=== PATIENT | male | born 1975 | race Native Hawaiian/Other Pacific Islander ===

== ENCOUNTER 2016-06-17 15:54 | Outpatient (CLI) | payer BC ==
[2016-06-17 16:22] LABS: PLATELET COUNT 202 K/uL (142-355)
[2016-06-17 16:31] LABS: POTASSIUM 4.3 mmol/L (3.6-5.2); SODIUM 134 mmol/L (136-145)
== END 2016-06-17 23:06 | disposition home or self-care (01) ==
LOC: LAB 15:54
PROVIDERS: Student in an Organized Health Care Education/Training Program
DX: K85.90 Acute pancreatitis without necrosis or infection, unspecified (principal); R74.0 Nonspecific elevation of levels of transaminase and lactic acid dehydrogenase [LDH]
CPT/HCPCS: 80053; 83735; 84100; 84478; 85027

== ENCOUNTER 2016-06-24 15:31 | Outpatient (CLI) | payer BC ==
[2016-06-24 15:46] LABS: PLATELET COUNT 160 K/uL (142-355)
[2016-06-24 16:08] LABS: POTASSIUM 3.9 mmol/L (3.6-5.2); SODIUM 139 mmol/L (136-145)
== END 2016-06-24 20:19 | disposition home or self-care (01) ==
LOC: LAB 15:31
PROVIDERS: Student in an Organized Health Care Education/Training Program
DX: Z79.899 Other long term (current) drug therapy (principal); Z51.81 Encounter for therapeutic drug level monitoring; K85.90 Acute pancreatitis without necrosis or infection, unspecified; R74.0 Nonspecific elevation of levels of transaminase and lactic acid dehydrogenase [LDH]
CPT/HCPCS: 80053; 83735; 84100; 84478; 85027

== ENCOUNTER 2016-07-01 15:05 | Outpatient (CLI) | payer OTHER ==
[2016-07-01 16:23] LABS: PLATELET COUNT 224 K/uL (142-355)
[2016-07-01 16:28] LABS: SODIUM 137 mmol/L (136-145)
== END 2016-07-02 02:03 | disposition home or self-care (01) ==
LOC: LAB 15:05
PROVIDERS: Student in an Organized Health Care Education/Training Program
DX: K29.80 Duodenitis without bleeding (principal); K86.1 Other chronic pancreatitis; E46 Unspecified protein-calorie malnutrition
CPT/HCPCS: 80053; 83735; 84100; 84478; 85027

== ENCOUNTER 2016-07-08 12:28 | Outpatient (CLI) | payer OTHER ==
[2016-07-08 14:06] LABS: PLATELET COUNT 195 K/uL (142-355)
[2016-07-08 14:12] LABS: SODIUM 137 mmol/L (136-145)
== END 2016-07-08 19:36 | disposition home or self-care (01) ==
LOC: LAB 12:28
PROVIDERS: Student in an Organized Health Care Education/Training Program
DX: K29.80 Duodenitis without bleeding (principal); K86.1 Other chronic pancreatitis; E46 Unspecified protein-calorie malnutrition; Z79.899 Other long term (current) drug therapy; Z51.81 Encounter for therapeutic drug level monitoring
CPT/HCPCS: 80053; 82150; 83690; 83735; 84100; 84478; 85027

== ENCOUNTER 2016-07-15 13:13 | Outpatient (CLI) | payer BC ==
[2016-07-15 13:35] LABS: PLATELET COUNT 223 K/uL (142-355)
[2016-07-15 13:59] LABS: POTASSIUM 4.4 mmol/L (3.6-5.2); SODIUM 136 mmol/L (136-145)
== END 2016-07-15 19:54 | disposition home or self-care (01) ==
LOC: LAB 13:13
PROVIDERS: Student in an Organized Health Care Education/Training Program
DX: K29.80 Duodenitis without bleeding (principal); K86.1 Other chronic pancreatitis; Z79.899 Other long term (current) drug therapy; Z51.81 Encounter for therapeutic drug level monitoring; E46 Unspecified protein-calorie malnutrition
CPT/HCPCS: 80053; 82150; 83690; 83735; 84100; 84478; 85027

== ENCOUNTER 2016-07-15 18:07 | Emergency (ER) | payer BC, OTHER ==
[~2016-07-15] VITALS: Ht 188 cm; Wt 108.9 kg
[2016-07-15 20:39] LABS: PLATELET COUNT 227 K/uL (142-355)
[2016-07-15 20:46] LABS: POTASSIUM 3.9 mmol/L (3.6-5.2); SODIUM 133 mmol/L (136-145)
[2016-07-15 23:53] VITALS: BP 135/90; TEMP 98.4
== END 2016-07-15 23:58 | disposition home or self-care (01) ==
LOC: ED 18:07
PROVIDERS: Specialist
DX: K86.1 Other chronic pancreatitis (principal); K57.90 Diverticulosis of intestine, part unspecified, without perforation or abscess without bleeding; G89.4 Chronic pain syndrome
CPT/HCPCS: 36591; 80053; 82150; 83690; 83735; 84100; 85027; 96374; 99284; J2405; J2550; Q9963

== ENCOUNTER 2016-07-22 15:26 | Outpatient (CLI) | payer BC, OTHER ==
[2016-07-22 15:46] LABS: PLATELET COUNT 161 K/uL (142-355)
[2016-07-22 16:31] LABS: SODIUM 139 mmol/L (136-145)
== END 2016-07-22 19:25 | disposition home or self-care (01) ==
LOC: LAB 15:26
PROVIDERS: Student in an Organized Health Care Education/Training Program
DX: K29.80 Duodenitis without bleeding (principal); K86.1 Other chronic pancreatitis; Z79.899 Other long term (current) drug therapy; Z51.81 Encounter for therapeutic drug level monitoring
CPT/HCPCS: 80053; 82150; 83690; 83735; 84100; 84478; 85027

== ENCOUNTER 2016-07-29 15:13 | Outpatient (CLI) | payer BC, OTHER ==
[2016-07-29 16:11] LABS: PLATELET COUNT 179 K/uL (142-355)
[2016-07-29 16:13] LABS: POTASSIUM 4.2 mmol/L (3.6-5.2); SODIUM 136 mmol/L (136-145)
== END 2016-07-29 19:31 | disposition home or self-care (01) ==
LOC: LAB 15:13
PROVIDERS: Student in an Organized Health Care Education/Training Program
DX: K29.80 Duodenitis without bleeding (principal); K86.1 Other chronic pancreatitis; E46 Unspecified protein-calorie malnutrition; Z51.81 Encounter for therapeutic drug level monitoring
CPT/HCPCS: 80053; 82150; 83690; 83735; 84100; 84478; 85027

== ENCOUNTER 2016-08-06 14:26 | Outpatient (CLI) | payer BC, OTHER ==
[2016-08-06 15:07] LABS: PLATELET COUNT 192 K/uL (142-355)
[2016-08-06 15:34] LABS: POTASSIUM 4.4 mmol/L (3.6-5.2); SODIUM 134 mmol/L (136-145)
== END 2016-08-06 15:26 | disposition home or self-care (01) ==
LOC: LAB 14:26
PROVIDERS: Student in an Organized Health Care Education/Training Program
DX: K29.80 Duodenitis without bleeding (principal); K86.1 Other chronic pancreatitis; E46 Unspecified protein-calorie malnutrition; Z51.81 Encounter for therapeutic drug level monitoring
CPT/HCPCS: 80053; 82150; 83690; 83735; 84100; 84478; 85027

== ENCOUNTER 2016-08-12 15:37 | Outpatient (CLI) | payer BC, OTHER ==
[2016-08-12 16:04] LABS: PLATELET COUNT 174 K/uL (142-355)
[2016-08-12 16:16] LABS: POTASSIUM 4.1 mmol/L (3.6-5.2); SODIUM 140 mmol/L (136-145)
== END 2016-08-12 19:21 | disposition home or self-care (01) ==
LOC: LAB 15:37
PROVIDERS: Student in an Organized Health Care Education/Training Program
DX: K29.80 Duodenitis without bleeding (principal); K86.1 Other chronic pancreatitis; E46 Unspecified protein-calorie malnutrition; Z51.81 Encounter for therapeutic drug level monitoring
CPT/HCPCS: 80053; 82150; 83690; 83735; 84100; 84478; 85027

== ENCOUNTER 2016-08-19 13:01 | Outpatient (CLI) | payer BC, OTHER ==
[2016-08-19 13:29] LABS: PLATELET COUNT 151 K/uL (142-355)
[2016-08-19 14:02] LABS: SODIUM 138 mmol/L (136-145)
== END 2016-08-19 19:25 | disposition home or self-care (01) ==
LOC: LAB 13:01
PROVIDERS: Student in an Organized Health Care Education/Training Program
DX: K29.80 Duodenitis without bleeding (principal); K86.1 Other chronic pancreatitis; E46 Unspecified protein-calorie malnutrition; Z51.81 Encounter for therapeutic drug level monitoring
CPT/HCPCS: 80053; 82150; 83690; 83735; 84100; 84478; 85027

== ENCOUNTER 2016-08-26 15:22 | Outpatient (CLI) | payer BC, OTHER ==
[2016-08-26 16:06] LABS: PLATELET COUNT 158 K/uL (142-355)
[2016-08-26 16:10] LABS: POTASSIUM 4.1 mmol/L (3.6-5.2); SODIUM 137 mmol/L (136-145)
== END 2016-08-26 19:33 | disposition home or self-care (01) ==
LOC: LAB 15:22
PROVIDERS: Student in an Organized Health Care Education/Training Program
DX: K29.80 Duodenitis without bleeding (principal); K86.1 Other chronic pancreatitis; Z79.899 Other long term (current) drug therapy; Z51.81 Encounter for therapeutic drug level monitoring
CPT/HCPCS: 80053; 82150; 83690; 83735; 84100; 84478; 85027

== ENCOUNTER 2016-09-02 15:24 | Outpatient (CLI) | payer BC, OTHER ==
[2016-09-02 15:37] LABS: PLATELET COUNT 196 K/uL (142-355)
[2016-09-02 16:17] LABS: POTASSIUM 3.5 mmol/L (3.6-5.2); SODIUM 139 mmol/L (136-145)
== END 2016-09-02 20:03 | disposition home or self-care (01) ==
LOC: LAB 15:24
PROVIDERS: Student in an Organized Health Care Education/Training Program
DX: K29.80 Duodenitis without bleeding (principal); K86.1 Other chronic pancreatitis; E46 Unspecified protein-calorie malnutrition; Z51.81 Encounter for therapeutic drug level monitoring
CPT/HCPCS: 80053; 82150; 83690; 83735; 84100; 84478; 85027

== ENCOUNTER 2016-09-09 12:30 | Outpatient (CLI) | payer BC, OTHER ==
[2016-09-09 13:01] LABS: PLATELET COUNT 177 K/uL (142-355)
[2016-09-09 13:05] LABS: POTASSIUM 4.1 mmol/L (3.6-5.2); SODIUM 137 mmol/L (136-145)
== END 2016-09-09 19:23 | disposition home or self-care (01) ==
LOC: LAB 12:30
PROVIDERS: Student in an Organized Health Care Education/Training Program
DX: K29.80 Duodenitis without bleeding (principal); K86.1 Other chronic pancreatitis; Z79.899 Other long term (current) drug therapy; Z51.81 Encounter for therapeutic drug level monitoring
CPT/HCPCS: 80053; 82150; 83690; 83735; 84100; 84478; 85027

== ENCOUNTER 2016-09-18 13:00 | Outpatient (CLI) | payer BC, OTHER ==
[2016-09-18 13:16] LABS: PLATELET COUNT 146 K/uL (142-355)
[2016-09-18 13:44] LABS: POTASSIUM 3.8 mmol/L (3.6-5.2); SODIUM 140 mmol/L (136-145)
== END 2016-09-18 19:32 | disposition home or self-care (01) ==
LOC: LAB 13:00
PROVIDERS: Student in an Organized Health Care Education/Training Program
DX: K29.80 Duodenitis without bleeding (principal); K86.1 Other chronic pancreatitis; E46 Unspecified protein-calorie malnutrition; Z51.81 Encounter for therapeutic drug level monitoring
CPT/HCPCS: 80053; 82150; 83690; 83735; 84100; 84478; 85027

== ENCOUNTER 2016-10-29 15:04 | Outpatient (CLI) | payer BC, OTHER ==
[2016-10-29 15:27] LABS: PLATELET COUNT 137 K/uL (142-355)
[2016-10-29 15:38] LABS: POTASSIUM 3.1 mmol/L (3.6-5.2); SODIUM 139 mmol/L (136-145)
== END 2016-10-29 16:05 | disposition home or self-care (01) ==
LOC: LAB 15:04
PROVIDERS: Internal Medicine
DX: K29.80 Duodenitis without bleeding (principal); K86.1 Other chronic pancreatitis; E46 Unspecified protein-calorie malnutrition
CPT/HCPCS: 80053; 82150; 83690; 84100; 85027

== ENCOUNTER 2016-11-04 14:20 | Outpatient (CLI) | payer BC, OTHER ==
[2016-11-04 14:59] LABS: POTASSIUM 3.5 mmol/L (3.6-5.2); SODIUM 143 mmol/L (136-145)
[2016-11-04 15:12] LABS: PLATELET COUNT 144 K/uL (142-355)
== END 2016-11-04 15:20 | disposition home or self-care (01) ==
LOC: LAB 14:20
PROVIDERS: Internal Medicine
DX: K29.80 Duodenitis without bleeding (principal); K86.1 Other chronic pancreatitis
CPT/HCPCS: 80053; 82150; 83690; 85027

== ENCOUNTER 2016-11-25 12:28 | Outpatient (CLI) | payer BC, OTHER ==
[2016-11-25 12:47] LABS: PLATELET COUNT 152 K/uL (142-355)
[2016-11-25 13:01] LABS: POTASSIUM 2.7 mmol/L (3.6-5.2); SODIUM 141 mmol/L (136-145)
== END 2016-11-25 19:28 | disposition home or self-care (01) ==
LOC: LAB 12:28
PROVIDERS: Internal Medicine
DX: K29.80 Duodenitis without bleeding (principal); K86.1 Other chronic pancreatitis; E46 Unspecified protein-calorie malnutrition
CPT/HCPCS: 80053; 82150; 83690; 83735; 85027

== ENCOUNTER 2016-11-27 15:51 | Outpatient (CLI) | payer BC, OTHER ==
[2016-11-27 16:29] LABS: PLATELET COUNT 329 K/uL (142-355)
[2016-11-27 16:34] LABS: POTASSIUM 2.8 mmol/L (3.6-5.2); SODIUM 139 mmol/L (136-145)
== END 2016-11-27 17:00 | disposition home or self-care (01) ==
LOC: LAB 15:51
PROVIDERS: Internal Medicine
DX: K29.80 Duodenitis without bleeding (principal); K86.1 Other chronic pancreatitis
CPT/HCPCS: 80053; 82150; 83690; 83735; 85027

== ENCOUNTER 2016-12-04 15:32 | Outpatient (CLI) | payer BC, OTHER ==
[2016-12-04 16:13] LABS: PLATELET COUNT 179 K/uL (142-355)
[2016-12-04 16:45] LABS: POTASSIUM 3.3 mmol/L (3.6-5.2); SODIUM 143 mmol/L (136-145)
== END 2016-12-04 19:36 | disposition home or self-care (01) ==
LOC: LAB 15:32
PROVIDERS: Internal Medicine
DX: K29.80 Duodenitis without bleeding (principal); K86.1 Other chronic pancreatitis; E46 Unspecified protein-calorie malnutrition
CPT/HCPCS: 80053; 82150; 83690; 83735; 85027

== ENCOUNTER 2016-12-09 12:24 | Outpatient (CLI) | payer BC, OTHER ==
[2016-12-09 13:10] LABS: PLATELET COUNT 134 K/uL (142-355)
[2016-12-09 13:18] LABS: POTASSIUM 3.7 mmol/L (3.6-5.2); SODIUM 141 mmol/L (136-145)
== END 2016-12-09 19:24 | disposition home or self-care (01) ==
LOC: LAB 12:24
PROVIDERS: Internal Medicine
DX: K29.80 Duodenitis without bleeding (principal); K86.1 Other chronic pancreatitis; E46 Unspecified protein-calorie malnutrition
CPT/HCPCS: 80053; 82150; 83690; 83735; 85027

== ENCOUNTER 2017-01-16 13:13 | Outpatient (CLI) | payer BC, OTHER ==
[2017-01-16 13:26] LABS: PLATELET COUNT 150 K/uL (142-355)
[2017-01-16 13:34] LABS: POTASSIUM 3.3 mmol/L (3.6-5.2); SODIUM 143 mmol/L (136-145)
== END 2017-01-16 14:15 | disposition home or self-care (01) ==
LOC: LAB 13:13
PROVIDERS: Internal Medicine
DX: K29.80 Duodenitis without bleeding (principal); E46 Unspecified protein-calorie malnutrition; K86.1 Other chronic pancreatitis
CPT/HCPCS: 80053; 82150; 83690; 83735; 85027

== ENCOUNTER 2017-01-29 15:06 | Outpatient (CLI) | payer BC, OTHER ==
[2017-01-29 16:08] LABS: PLATELET COUNT 185 K/uL (142-355)
[2017-01-29 16:47] LABS: POTASSIUM 3.5 mmol/L (3.6-5.2); SODIUM 139 mmol/L (136-145)
== END 2017-01-29 19:10 | disposition home or self-care (01) ==
LOC: LAB 15:06
PROVIDERS: Surgery
DX: K90.89 Other intestinal malabsorption (principal)
CPT/HCPCS: 80053; 82525; 82607; 82652; 82728; 83540; 83970; 84425; 85027

== ENCOUNTER 2017-02-03 10:15 | Outpatient (CLI) | payer BC, OTHER | END 2017-02-03 11:15 | disposition home or self-care (01) | LOC: LAB 10:15 | DX: K90.89 Other intestinal malabsorption (principal) | CPT/HCPCS: 82747; 84425 ==

== ENCOUNTER 2017-02-19 15:25 | Outpatient (CLI) | payer BC, OTHER ==
[2017-02-19 16:22] LABS: PLATELET COUNT 164 K/uL (142-355)
[2017-02-19 16:24] LABS: SODIUM 137 mmol/L (136-145)
== END 2017-02-19 19:52 | disposition home or self-care (01) ==
LOC: LAB 15:25
PROVIDERS: Surgery
DX: K29.80 Duodenitis without bleeding (principal); E46 Unspecified protein-calorie malnutrition; K86.1 Other chronic pancreatitis; E55.9 Vitamin D deficiency, unspecified
CPT/HCPCS: 80053; 82306; 82525; 82607; 82728; 82747; 83540; 83735; 83970; 84425; 85027

== ENCOUNTER 2017-05-27 15:01 | Outpatient (CLI) | payer BC, OTHER ==
[2017-05-27 15:53] LABS: PLATELET COUNT 167 K/uL (142-355)
[2017-05-27 16:21] LABS: POTASSIUM 2.8 mmol/L (3.6-5.2)
== END 2017-05-27 19:08 | disposition home or self-care (01) ==
LOC: LAB 15:01
PROVIDERS: Internal Medicine
DX: F32.89 Other specified depressive episodes (principal); K76.0 Fatty (change of) liver, not elsewhere classified
CPT/HCPCS: 80053; 82150; 83690; 85027

== ENCOUNTER 2017-06-06 16:16 | Outpatient (CLI) | payer BC, OTHER ==
[2017-06-06 17:54] LABS: POTASSIUM 2.9 mmol/L (3.6-5.2)
[2017-06-06 17:56] LABS: PLATELET COUNT 193 K/uL (142-355)
== END 2017-06-06 19:25 | disposition home or self-care (01) ==
LOC: LAB 16:16
PROVIDERS: Internal Medicine
DX: R62.7 Adult failure to thrive (principal); E78.6 Lipoprotein deficiency
CPT/HCPCS: 80053; 80061; 83735; 84100; 85027

== ENCOUNTER 2017-06-11 14:39 | Outpatient (CLI) | payer BC, OTHER ==
[2017-06-11 15:17] LABS: PLATELET COUNT 209 K/uL (142-355)
== END 2017-06-11 19:24 | disposition home or self-care (01) ==
LOC: LAB 14:39
PROVIDERS: Internal Medicine
DX: K29.80 Duodenitis without bleeding (principal); E46 Unspecified protein-calorie malnutrition; K86.1 Other chronic pancreatitis
CPT/HCPCS: 80053; 83735; 84100; 84478; 85027

== ENCOUNTER 2017-06-13 16:02 | Outpatient (CLI) | payer BC, OTHER ==
[2017-06-13 16:14] LABS: POTASSIUM 4.2 mmol/L (3.6-5.2)
== END 2017-06-13 21:09 | disposition home or self-care (01) ==
LOC: LAB 16:02
PROVIDERS: Internal Medicine
DX: K85.80 Other acute pancreatitis without necrosis or infection (principal); R74.0 Nonspecific elevation of levels of transaminase and lactic acid dehydrogenase [LDH]; E87.6 Hypokalemia
CPT/HCPCS: 36415; 80053; 83735; 84100

== ENCOUNTER 2017-06-16 15:09 | Outpatient (CLI) | payer BC, OTHER ==
[2017-06-16 15:51] LABS: PLATELET COUNT 155 K/uL (142-355)
[2017-06-16 16:02] LABS: POTASSIUM 3.8 mmol/L (3.6-5.2)
== END 2017-06-16 19:22 | disposition home or self-care (01) ==
LOC: LAB 15:09
PROVIDERS: Internal Medicine
DX: K29.80 Duodenitis without bleeding (principal); E46 Unspecified protein-calorie malnutrition
CPT/HCPCS: 80053; 83735; 84100; 84478; 85027

== ENCOUNTER 2017-06-24 11:47 | Outpatient (CLI) | payer BC, OTHER | END 2017-06-24 19:49 | disposition home or self-care (01) | LOC: LAB 11:47 | DX: E46 Unspecified protein-calorie malnutrition (principal) | CPT/HCPCS: 82150; 83690 ==

== ENCOUNTER 2017-06-30 18:08 | Outpatient (CLI) | payer BC, OTHER ==
[2017-06-30 18:26] LABS: PLATELET COUNT 190 K/uL (142-355)
[2017-06-30 18:49] LABS: POTASSIUM 3.9 mmol/L (3.6-5.2)
== END 2017-06-30 20:12 | disposition home or self-care (01) ==
LOC: LAB 18:08
PROVIDERS: Internal Medicine
DX: K29.80 Duodenitis without bleeding (principal); E46 Unspecified protein-calorie malnutrition; E87.6 Hypokalemia
CPT/HCPCS: 80053; 83735; 84100; 84478; 85027

== ENCOUNTER 2017-07-08 14:50 | Outpatient (CLI) | payer BC, OTHER ==
[2017-07-08 15:50] LABS: POTASSIUM 4.1 mmol/L (3.6-5.2)
[2017-07-08 15:51] LABS: PLATELET COUNT 186 K/uL (142-355)
== END 2017-07-08 18:20 | disposition home or self-care (01) ==
LOC: LAB 14:50
PROVIDERS: Internal Medicine
DX: K29.80 Duodenitis without bleeding (principal); E87.6 Hypokalemia; K86.1 Other chronic pancreatitis
CPT/HCPCS: 80053; 83735; 84100; 84478; 85027

== ENCOUNTER 2017-07-15 13:27 | Outpatient (CLI) | payer BC, OTHER ==
[2017-07-15 14:04] LABS: PLATELET COUNT 156 K/uL (142-355)
[2017-07-15 14:13] LABS: POTASSIUM 3.9 mmol/L (3.6-5.2)
== END 2017-07-15 20:03 | disposition home or self-care (01) ==
LOC: LAB 13:27
PROVIDERS: Internal Medicine
DX: K86.89 Other specified diseases of pancreas (principal); R74.0 Nonspecific elevation of levels of transaminase and lactic acid dehydrogenase [LDH]; R62.7 Adult failure to thrive; K31.84 Gastroparesis
CPT/HCPCS: 80053; 83735; 84100; 84478; 85027

== ENCOUNTER 2017-07-29 15:05 | Outpatient (CLI) | payer BC, OTHER ==
[2017-07-29 15:23] LABS: PLATELET COUNT 224 K/uL (142-355)
[2017-07-29 16:19] LABS: POTASSIUM 3.9 mmol/L (3.6-5.2)
== END 2017-07-29 22:57 | disposition home or self-care (01) ==
LOC: LAB 15:05
PROVIDERS: Internal Medicine
DX: K85.80 Other acute pancreatitis without necrosis or infection (principal); R74.0 Nonspecific elevation of levels of transaminase and lactic acid dehydrogenase [LDH]; R62.7 Adult failure to thrive; K31.84 Gastroparesis
CPT/HCPCS: 80053; 83735; 84100; 84478; 85027

== ENCOUNTER 2017-08-05 13:14 | Outpatient (CLI) | payer BC, OTHER ==
[2017-08-05 13:57] LABS: PLATELET COUNT 128 K/uL (142-355)
[2017-08-05 14:07] LABS: POTASSIUM 3.5 mmol/L (3.6-5.2)
== END 2017-08-05 22:56 | disposition home or self-care (01) ==
LOC: LAB 13:14
PROVIDERS: Internal Medicine
DX: K86.89 Other specified diseases of pancreas (principal); R74.0 Nonspecific elevation of levels of transaminase and lactic acid dehydrogenase [LDH]; R62.7 Adult failure to thrive; K31.84 Gastroparesis
CPT/HCPCS: 80053; 83735; 84100; 84478; 85027

== ENCOUNTER 2017-09-02 12:48 | Outpatient (CLI) | payer BC, OTHER ==
[2017-09-02 13:31] LABS: PLATELET COUNT 146 K/uL (142-355)
== END 2017-09-02 19:36 | disposition home or self-care (01) ==
LOC: LAB 12:48
PROVIDERS: Internal Medicine
DX: K29.80 Duodenitis without bleeding (principal); E87.6 Hypokalemia; K86.1 Other chronic pancreatitis
CPT/HCPCS: 80053; 82150; 83690; 83735; 84100; 84478; 85027

== ENCOUNTER 2017-09-30 14:21 | Outpatient (CLI) | payer BC, OTHER ==
[2017-09-30 14:56] LABS: PLATELET COUNT 214 K/uL (142-355)
[2017-09-30 15:16] LABS: POTASSIUM 3.1 mmol/L (3.6-5.2)
== END 2017-09-30 19:53 | disposition home or self-care (01) ==
LOC: LAB 14:21
PROVIDERS: Internal Medicine
DX: K85.80 Other acute pancreatitis without necrosis or infection (principal); R74.0 Nonspecific elevation of levels of transaminase and lactic acid dehydrogenase [LDH]; R62.7 Adult failure to thrive; K31.84 Gastroparesis
CPT/HCPCS: 80053; 83735; 84100; 84478; 85027

== ENCOUNTER 2017-10-07 14:42 | Outpatient (CLI) | payer BC, OTHER ==
[2017-10-07 15:01] LABS: PLATELET COUNT 140 K/uL (142-355)
[2017-10-07 15:40] LABS: POTASSIUM 3.2 mmol/L (3.6-5.2)
== END 2017-10-07 22:26 | disposition home or self-care (01) ==
LOC: LAB 14:42
PROVIDERS: Internal Medicine
DX: K85.80 Other acute pancreatitis without necrosis or infection (principal); R74.0 Nonspecific elevation of levels of transaminase and lactic acid dehydrogenase [LDH]; R62.7 Adult failure to thrive
CPT/HCPCS: 80053; 83735; 84100; 84478; 85027

== ENCOUNTER 2017-10-17 12:22 | Outpatient (CLI) | payer BC, OTHER ==
[2017-10-17 13:06] LABS: PLATELET COUNT 138 K/uL (142-355)
[2017-10-17 13:33] LABS: POTASSIUM 3.2 mmol/L (3.6-5.2)
== END 2017-10-17 23:16 | disposition home or self-care (01) ==
LOC: LAB 12:22
PROVIDERS: Internal Medicine
DX: K85.80 Other acute pancreatitis without necrosis or infection (principal); R74.0 Nonspecific elevation of levels of transaminase and lactic acid dehydrogenase [LDH]; R62.7 Adult failure to thrive; K31.84 Gastroparesis
CPT/HCPCS: 80053; 83735; 84100; 84478; 85027

== ENCOUNTER 2017-10-29 09:52 | Outpatient (CLI) | payer BC, OTHER ==
[2017-10-29 10:23] LABS: POTASSIUM 3.8 mmol/L (3.6-5.2)
[2017-10-29 10:29] LABS: PLATELET COUNT 150 K/uL (142-355)
== END 2017-10-29 23:55 | disposition home or self-care (01) ==
LOC: LAB 09:52
PROVIDERS: Internal Medicine
DX: K29.80 Duodenitis without bleeding (principal); E46 Unspecified protein-calorie malnutrition; T80.211D Bloodstream infection due to central venous catheter, subsequent encounter
CPT/HCPCS: 80053; 80202; 83735; 84100; 84478; 85027

== ENCOUNTER 2017-11-04 14:14 | Outpatient (CLI) | payer BC, OTHER ==
[2017-11-04 14:43] LABS: PLATELET COUNT 115 K/uL (142-355)
[2017-11-04 15:21] LABS: POTASSIUM 3.2 mmol/L (3.6-5.2)
== END 2017-11-04 23:17 | disposition home or self-care (01) ==
LOC: LAB 14:14
PROVIDERS: Internal Medicine
DX: K85.80 Other acute pancreatitis without necrosis or infection (principal); R74.0 Nonspecific elevation of levels of transaminase and lactic acid dehydrogenase [LDH]; R62.7 Adult failure to thrive; K31.84 Gastroparesis
CPT/HCPCS: 80053; 83735; 84100; 84478; 85027

== ENCOUNTER 2017-11-11 12:31 | Outpatient (CLI) | payer BC, OTHER ==
[2017-11-11 12:52] LABS: PLATELET COUNT 108 K/uL (142-355)
[2017-11-11 13:10] LABS: POTASSIUM 3.3 mmol/L (3.6-5.2)
== END 2017-11-11 19:09 | disposition home or self-care (01) ==
LOC: LAB 12:31
PROVIDERS: Internal Medicine
DX: K85.80 Other acute pancreatitis without necrosis or infection (principal); R74.0 Nonspecific elevation of levels of transaminase and lactic acid dehydrogenase [LDH]; R62.7 Adult failure to thrive
CPT/HCPCS: 80053; 83735; 84100; 84478; 85027

== ENCOUNTER 2017-11-18 14:42 | Outpatient (CLI) | payer BC, OTHER ==
[2017-11-18 15:10] LABS: PLATELET COUNT 91 K/uL (142-355)
[2017-11-18 15:37] LABS: POTASSIUM 3.7 mmol/L (3.6-5.2)
== END 2017-11-18 23:51 | disposition home or self-care (01) ==
LOC: LAB 14:42
PROVIDERS: Internal Medicine
DX: K85.90 Acute pancreatitis without necrosis or infection, unspecified (principal); R74.0 Nonspecific elevation of levels of transaminase and lactic acid dehydrogenase [LDH]; R62.7 Adult failure to thrive; K31.84 Gastroparesis
CPT/HCPCS: 80053; 83735; 84100; 84478; 85027

== ENCOUNTER 2017-12-01 14:48 | Outpatient (CLI) | payer BC, OTHER ==
[2017-12-01 15:19] LABS: PLATELET COUNT 148 K/uL (142-355)
[2017-12-01 15:49] LABS: POTASSIUM 3.9 mmol/L (3.6-5.2)
== END 2017-12-01 22:03 | disposition home or self-care (01) ==
LOC: LAB 14:48
PROVIDERS: Internal Medicine
DX: K85.80 Other acute pancreatitis without necrosis or infection (principal); R74.0 Nonspecific elevation of levels of transaminase and lactic acid dehydrogenase [LDH]; R62.7 Adult failure to thrive; K31.84 Gastroparesis
CPT/HCPCS: 80053; 83735; 84100; 84478; 85027

== ENCOUNTER 2017-12-09 13:02 | Outpatient (CLI) | payer BC ==
[2017-12-09 13:42] LABS: PLATELET COUNT 161 K/uL (142-355)
[2017-12-09 13:55] LABS: POTASSIUM 3.3 mmol/L (3.6-5.2)
== END 2017-12-09 19:55 | disposition home or self-care (01) ==
LOC: LAB 13:02
PROVIDERS: Internal Medicine
DX: K29.80 Duodenitis without bleeding (principal); K95.89 Other complications of other bariatric procedure; E46 Unspecified protein-calorie malnutrition; Z79.899 Other long term (current) drug therapy
CPT/HCPCS: 80053; 83735; 84100; 84478; 85027

== ENCOUNTER 2017-12-16 13:50 | Outpatient (CLI) | payer BC ==
[2017-12-16 14:19] LABS: PLATELET COUNT 127 K/uL (142-355)
[2017-12-16 14:34] LABS: POTASSIUM 3.7 mmol/L (3.6-5.2)
== END 2017-12-16 20:02 | disposition home or self-care (01) ==
LOC: LAB 13:50
PROVIDERS: Internal Medicine
DX: K85.80 Other acute pancreatitis without necrosis or infection (principal); R74.0 Nonspecific elevation of levels of transaminase and lactic acid dehydrogenase [LDH]
CPT/HCPCS: 80053; 83735; 84100; 84478; 85027

== ENCOUNTER 2017-12-23 14:52 | Outpatient (CLI) | payer BC ==
[2017-12-23 15:17] LABS: PLATELET COUNT 95 K/uL (142-355)
[2017-12-23 15:27] LABS: POTASSIUM 3.3 mmol/L (3.6-5.2)
== END 2017-12-23 22:09 | disposition home or self-care (01) ==
LOC: LAB 14:52
PROVIDERS: Internal Medicine
DX: K31.84 Gastroparesis (principal); Z79.899 Other long term (current) drug therapy; R62.7 Adult failure to thrive
CPT/HCPCS: 80053; 83735; 84100; 84478; 85027

== ENCOUNTER 2018-01-06 11:34 | Outpatient (CLI) | payer BC, OTHER ==
[2018-01-06 12:30] LABS: PLATELET COUNT 144 K/uL (142-355)
[2018-01-06 13:00] LABS: POTASSIUM 4.4 mmol/L (3.6-5.2)
== END 2018-01-06 23:31 | disposition home or self-care (01) ==
LOC: LAB 11:34
PROVIDERS: Internal Medicine
DX: D46.9 Myelodysplastic syndrome, unspecified (principal); R78.81 Bacteremia; R74.0 Nonspecific elevation of levels of transaminase and lactic acid dehydrogenase [LDH]
CPT/HCPCS: 80053; 80202; 83735; 84100; 84478; 85027; 85651; 86140

== ENCOUNTER 2018-01-13 11:45 | Outpatient (CLI) | payer BC, OTHER ==
[2018-01-13 13:18] LABS: PLATELET COUNT 123 K/uL (142-355)
== END 2018-01-13 22:24 | disposition home or self-care (01) ==
LOC: LAB 11:45
PROVIDERS: Internal Medicine
DX: K85.90 Acute pancreatitis without necrosis or infection, unspecified (principal); R74.0 Nonspecific elevation of levels of transaminase and lactic acid dehydrogenase [LDH]
CPT/HCPCS: 80053; 83735; 84100; 84478; 85027

== ENCOUNTER 2018-01-21 13:59 | Outpatient (CLI) | payer BC, OTHER ==
[2018-01-21 14:44] LABS: POTASSIUM 3.7 mmol/L (3.6-5.2)
[2018-01-21 14:48] LABS: PLATELET COUNT 68 K/uL (142-355)
== END 2018-01-21 19:43 | disposition home or self-care (01) ==
LOC: LAB 13:59
PROVIDERS: Internal Medicine
DX: K85.90 Acute pancreatitis without necrosis or infection, unspecified (principal); R74.0 Nonspecific elevation of levels of transaminase and lactic acid dehydrogenase [LDH]; R62.7 Adult failure to thrive; K31.84 Gastroparesis
CPT/HCPCS: 80053; 83735; 84100; 84478; 85027

== ENCOUNTER 2018-01-28 12:30 | Outpatient (CLI) | payer BC, OTHER ==
[2018-01-28 12:40] LABS: PLATELET COUNT 109 K/uL (142-355)
[2018-01-28 13:06] LABS: POTASSIUM 3.7 mmol/L (3.6-5.2)
== END 2018-01-28 21:03 | disposition home or self-care (01) ==
LOC: LAB 12:30
PROVIDERS: Internal Medicine
DX: K85.90 Acute pancreatitis without necrosis or infection, unspecified (principal); R74.0 Nonspecific elevation of levels of transaminase and lactic acid dehydrogenase [LDH]
CPT/HCPCS: 80053; 83735; 84100; 84478; 85027

== ENCOUNTER 2018-02-10 12:44 | Outpatient (CLI) | payer BC, OTHER ==
[2018-02-10 12:57] LABS: PLATELET COUNT 75 K/uL (142-355)
[2018-02-10 13:37] LABS: POTASSIUM 3.5 mmol/L (3.6-5.2)
== END 2018-02-10 22:44 | disposition home or self-care (01) ==
LOC: LAB 12:44
PROVIDERS: Internal Medicine
DX: K85.90 Acute pancreatitis without necrosis or infection, unspecified (principal); R74.0 Nonspecific elevation of levels of transaminase and lactic acid dehydrogenase [LDH]; R62.7 Adult failure to thrive; K31.84 Gastroparesis
CPT/HCPCS: 80053; 83735; 84100; 84478; 85027

== ENCOUNTER 2018-02-17 13:45 | Outpatient (CLI) | payer BC, OTHER ==
[2018-02-17 13:55] LABS: PLATELET COUNT 118 K/uL (142-355)
[2018-02-17 14:08] LABS: POTASSIUM 3.3 mmol/L (3.6-5.2)
== END 2018-02-17 22:35 | disposition home or self-care (01) ==
LOC: LAB 13:45
PROVIDERS: Internal Medicine
DX: K85.90 Acute pancreatitis without necrosis or infection, unspecified (principal); R74.0 Nonspecific elevation of levels of transaminase and lactic acid dehydrogenase [LDH]
CPT/HCPCS: 80053; 83735; 84100; 84478; 85027

== ENCOUNTER 2018-02-24 12:55 | Outpatient (CLI) | payer BC, OTHER ==
[2018-02-24 13:33] LABS: PLATELET COUNT 82 K/uL (142-355)
[2018-02-24 13:44] LABS: POTASSIUM 3.1 mmol/L (3.6-5.2)
== END 2018-02-24 21:26 | disposition home or self-care (01) ==
LOC: LAB 12:55
PROVIDERS: Internal Medicine
DX: K85.90 Acute pancreatitis without necrosis or infection, unspecified (principal); R74.0 Nonspecific elevation of levels of transaminase and lactic acid dehydrogenase [LDH]; R62.7 Adult failure to thrive; K31.84 Gastroparesis
CPT/HCPCS: 80053; 83735; 84100; 84478; 85027

== ENCOUNTER 2018-03-23 11:18 | Outpatient (CLI) | payer BC, OTHER ==
[2018-03-23 11:36] LABS: PLATELET COUNT 153 K/uL (142-355)
[2018-03-23 11:58] LABS: POTASSIUM 3.8 mmol/L (3.6-5.2)
== END 2018-03-23 19:48 | disposition home or self-care (01) ==
LOC: LAB 11:18
PROVIDERS: Internal Medicine
DX: K95.89 Other complications of other bariatric procedure (principal); E46 Unspecified protein-calorie malnutrition; D40.9 Neoplasm of uncertain behavior of male genital organ, unspecified; K86.1 Other chronic pancreatitis; Z51.81 Encounter for therapeutic drug level monitoring; Z98.84 Bariatric surgery status; Z79.899 Other long term (current) drug therapy
CPT/HCPCS: 80053; 82607; 82728; 82746; 83540; 83735; 84134; 84478; 85027

== ENCOUNTER 2018-04-01 14:06 | Outpatient (CLI) | payer BC, OTHER ==
[2018-04-01 14:22] LABS: PLATELET COUNT 185 K/uL (142-355)
[2018-04-01 14:45] LABS: POTASSIUM 3.7 mmol/L (3.6-5.2)
== END 2018-04-01 20:21 | disposition home or self-care (01) ==
LOC: LAB 14:06
PROVIDERS: Internal Medicine
DX: K95.89 Other complications of other bariatric procedure (principal); E46 Unspecified protein-calorie malnutrition; D40.9 Neoplasm of uncertain behavior of male genital organ, unspecified; K86.1 Other chronic pancreatitis; Z51.81 Encounter for therapeutic drug level monitoring; Z98.84 Bariatric surgery status; Z79.899 Other long term (current) drug therapy
CPT/HCPCS: 80053; 82607; 82728; 82746; 83540; 83735; 84134; 84478; 85027

== ENCOUNTER 2018-04-08 14:47 | Outpatient (CLI) | payer BC, OTHER ==
[2018-04-08 15:07] LABS: PLATELET COUNT 120 K/uL (142-355)
[2018-04-08 15:39] LABS: POTASSIUM 2.6 mmol/L (3.6-5.2)
== END 2018-04-08 21:17 | disposition home or self-care (01) ==
LOC: LAB 14:47
PROVIDERS: Internal Medicine
DX: K95.89 Other complications of other bariatric procedure (principal); E46 Unspecified protein-calorie malnutrition; D40.9 Neoplasm of uncertain behavior of male genital organ, unspecified; K86.1 Other chronic pancreatitis; Z51.81 Encounter for therapeutic drug level monitoring; Z98.84 Bariatric surgery status; Z79.899 Other long term (current) drug therapy
CPT/HCPCS: 80053; 82607; 82728; 82746; 83540; 83735; 84134; 84478; 85027

== ENCOUNTER 2018-04-15 07:28 | Outpatient (CLI) | payer BC, OTHER ==
[2018-04-15 08:30] LABS: PLATELET COUNT 142 K/uL (142-355)
[2018-04-15 08:38] LABS: POTASSIUM 3.1 mmol/L (3.6-5.2)
== END 2018-04-15 22:58 | disposition home or self-care (01) ==
LOC: LAB 07:28
PROVIDERS: Internal Medicine
DX: K29.80 Duodenitis without bleeding (principal); E46 Unspecified protein-calorie malnutrition; K95.89 Other complications of other bariatric procedure; K86.1 Other chronic pancreatitis; D46.9 Myelodysplastic syndrome, unspecified
CPT/HCPCS: 80053; 82607; 82728; 82746; 83540; 83735; 84134; 84478; 85027

== ENCOUNTER 2018-04-22 15:17 | Outpatient (CLI) | payer BC, OTHER ==
[2018-04-22 15:51] LABS: PLATELET COUNT 170 K/uL (142-355)
[2018-04-22 15:58] LABS: POTASSIUM 2.9 mmol/L (3.6-5.2)
== END 2018-04-22 19:30 | disposition home or self-care (01) ==
LOC: LAB 15:17
PROVIDERS: Internal Medicine
DX: K95.89 Other complications of other bariatric procedure (principal); E46 Unspecified protein-calorie malnutrition; K86.1 Other chronic pancreatitis; Z98.84 Bariatric surgery status; Z79.899 Other long term (current) drug therapy
CPT/HCPCS: 80053; 82607; 82728; 82746; 83540; 83735; 84134; 84478; 85027

== ENCOUNTER 2018-04-29 11:13 | Outpatient (CLI) | payer BC, OTHER ==
[2018-04-29 11:55] LABS: PLATELET COUNT 159 K/uL (142-355)
[2018-04-29 12:16] LABS: POTASSIUM 3.5 mmol/L (3.6-5.2)
== END 2018-04-29 19:04 | disposition home or self-care (01) ==
LOC: LAB 11:13
PROVIDERS: Internal Medicine
DX: K95.89 Other complications of other bariatric procedure (principal); E46 Unspecified protein-calorie malnutrition; D40.9 Neoplasm of uncertain behavior of male genital organ, unspecified; K86.1 Other chronic pancreatitis; Z51.81 Encounter for therapeutic drug level monitoring; Z98.84 Bariatric surgery status; Z79.899 Other long term (current) drug therapy
CPT/HCPCS: 80053; 82607; 82728; 82746; 83540; 83735; 84134; 84478; 85027

== ENCOUNTER 2018-05-06 13:11 | Outpatient (CLI) | payer OTHER ==
[2018-05-06 14:16] LABS: POTASSIUM 3.8 mmol/L (3.6-5.2)
[2018-05-06 14:28] LABS: PLATELET COUNT 133 K/uL (142-355)
== END 2018-05-06 21:36 | disposition home or self-care (01) ==
LOC: LAB 13:11
PROVIDERS: Internal Medicine
DX: K95.89 Other complications of other bariatric procedure (principal); E46 Unspecified protein-calorie malnutrition; D40.9 Neoplasm of uncertain behavior of male genital organ, unspecified; K86.1 Other chronic pancreatitis; Z51.81 Encounter for therapeutic drug level monitoring; Z98.84 Bariatric surgery status; Z79.899 Other long term (current) drug therapy
CPT/HCPCS: 80053; 82607; 82728; 82746; 83540; 83735; 84134; 84478; 85027

== ENCOUNTER 2018-11-04 11:26 | Outpatient (CLI) | payer OTHER ==
[2018-11-04 12:02] LABS: PLATELET COUNT 184 K/uL (142-355)
== END 2018-11-04 19:22 | disposition home or self-care (01) ==
LOC: LAB 11:26
PROVIDERS: Nurse Practitioner Family
DX: R62.7 Adult failure to thrive (principal); Z79.899 Other long term (current) drug therapy
CPT/HCPCS: 80053; 83735; 84100; 84443; 84478; 85027

== ENCOUNTER 2018-11-10 11:22 | Outpatient (CLI) | payer OTHER ==
[2018-11-10 11:38] LABS: PLATELET COUNT 178 K/uL (142-355)
[2018-11-10 11:58] LABS: POTASSIUM 4.4 mmol/L (3.6-5.2)
== END 2018-11-10 20:01 | disposition home or self-care (01) ==
LOC: LAB 11:22
PROVIDERS: Internal Medicine
DX: D46.Z Other myelodysplastic syndromes (principal); K85.80 Other acute pancreatitis without necrosis or infection; Z79.899 Other long term (current) drug therapy; E86.0 Dehydration; R74.0 Nonspecific elevation of levels of transaminase and lactic acid dehydrogenase [LDH]
CPT/HCPCS: 80053; 83735; 84100; 84478; 85027

== ENCOUNTER 2018-11-17 12:01 | Outpatient (CLI) | payer OTHER ==
[2018-11-17 12:29] LABS: PLATELET COUNT 115 K/uL (142-355)
[2018-11-17 12:45] LABS: POTASSIUM 3.8 mmol/L (3.6-5.2)
== END 2018-11-17 23:29 | disposition home or self-care (01) ==
LOC: LAB 12:01
PROVIDERS: Internal Medicine
DX: E86.0 Dehydration (principal); D64.89 Other specified anemias; K85.80 Other acute pancreatitis without necrosis or infection; R74.0 Nonspecific elevation of levels of transaminase and lactic acid dehydrogenase [LDH]
CPT/HCPCS: 80053; 83735; 84100; 84478; 85027

== ENCOUNTER 2018-11-24 13:35 | Outpatient (CLI) | payer OTHER ==
[2018-11-24 14:21] LABS: PLATELET COUNT 122 K/uL (142-355)
[2018-11-24 14:41] LABS: POTASSIUM 4.2 mmol/L (3.6-5.2)
== END 2018-11-24 22:35 | disposition home or self-care (01) ==
LOC: LAB 13:35
PROVIDERS: Internal Medicine
DX: R62.7 Adult failure to thrive (principal); E86.0 Dehydration; D46.9 Myelodysplastic syndrome, unspecified; K85.90 Acute pancreatitis without necrosis or infection, unspecified; R74.0 Nonspecific elevation of levels of transaminase and lactic acid dehydrogenase [LDH]
CPT/HCPCS: 80053; 83735; 84100; 84478; 85027

== ENCOUNTER 2018-12-04 14:34 | Outpatient (CLI) | payer OTHER ==
[2018-12-04 15:15] LABS: PLATELET COUNT 274 K/uL (142-355)
[2018-12-04 15:27] LABS: POTASSIUM 3.8 mmol/L (3.6-5.2)
== END 2018-12-04 21:48 | disposition home or self-care (01) ==
LOC: LAB 14:34
PROVIDERS: Internal Medicine
DX: R62.7 Adult failure to thrive (principal); K85.80 Other acute pancreatitis without necrosis or infection; R74.0 Nonspecific elevation of levels of transaminase and lactic acid dehydrogenase [LDH]; E86.0 Dehydration; D46.Z Other myelodysplastic syndromes
CPT/HCPCS: 80053; 83735; 84100; 84478; 85027

== ENCOUNTER 2018-12-08 14:04 | Outpatient (CLI) | payer OTHER ==
[2018-12-08 14:30] LABS: PLATELET COUNT 251 K/uL (142-355)
[2018-12-08 14:46] LABS: POTASSIUM 3.5 mmol/L (3.6-5.2)
== END 2018-12-08 23:19 | disposition home or self-care (01) ==
LOC: LAB 14:04
PROVIDERS: Internal Medicine
DX: D46.Z Other myelodysplastic syndromes (principal); K85.90 Acute pancreatitis without necrosis or infection, unspecified; R74.0 Nonspecific elevation of levels of transaminase and lactic acid dehydrogenase [LDH]; Z79.899 Other long term (current) drug therapy
CPT/HCPCS: 80053; 83735; 84100; 84478; 85027

== ENCOUNTER 2018-12-15 12:36 | Outpatient (CLI) | payer OTHER ==
[2018-12-15 13:47] LABS: PLATELET COUNT 101 K/uL (142-355)
[2018-12-15 13:56] LABS: POTASSIUM 3.3 mmol/L (3.6-5.2)
== END 2018-12-15 21:15 | disposition home or self-care (01) ==
LOC: LAB 12:36
PROVIDERS: Internal Medicine
DX: T81.44XD Sepsis following a procedure, subsequent encounter (principal); A41.01 Sepsis due to Methicillin susceptible Staphylococcus aureus; E86.0 Dehydration; D46.Z Other myelodysplastic syndromes; K85.80 Other acute pancreatitis without necrosis or infection; R74.0 Nonspecific elevation of levels of transaminase and lactic acid dehydrogenase [LDH]
CPT/HCPCS: 80053; 83735; 84100; 84478; 85027

== ENCOUNTER 2018-12-22 13:55 | Outpatient (CLI) | payer OTHER ==
[2018-12-22 14:28] LABS: PLATELET COUNT 175 K/uL (142-355)
[2018-12-22 14:33] LABS: POTASSIUM 3.4 mmol/L (3.6-5.2)
== END 2018-12-22 23:59 ==
LOC: LAB 13:55
PROVIDERS: Internal Medicine
DX: R62.7 Adult failure to thrive (principal); Z45.2 Encounter for adjustment and management of vascular access device; E86.0 Dehydration; D46.Z Other myelodysplastic syndromes; K85.80 Other acute pancreatitis without necrosis or infection; R74.0 Nonspecific elevation of levels of transaminase and lactic acid dehydrogenase [LDH]
CPT/HCPCS: 80053; 83735; 84100; 84478; 85027

== ENCOUNTER 2018-12-29 11:17 | Outpatient (CLI) | payer OTHER ==
[2018-12-29 11:33] LABS: PLATELET COUNT 226 K/uL (142-355)
[2018-12-29 12:13] LABS: POTASSIUM 4.5 mmol/L (3.6-5.2)
== END 2018-12-29 23:59 | disposition home or self-care (01) ==
LOC: LAB 11:17
PROVIDERS: Internal Medicine
DX: D46.Z Other myelodysplastic syndromes (principal); K85.90 Acute pancreatitis without necrosis or infection, unspecified; R74.0 Nonspecific elevation of levels of transaminase and lactic acid dehydrogenase [LDH]; E86.0 Dehydration
CPT/HCPCS: 80053; 83735; 84100; 84478; 85027

== ENCOUNTER 2019-01-05 13:35 | Outpatient (CLI) | payer OTHER ==
[2019-01-05 14:10] LABS: PLATELET COUNT 159 K/uL (142-355)
[2019-01-05 14:31] LABS: POTASSIUM 3.6 mmol/L (3.6-5.2)
== END 2019-01-05 22:59 | disposition home or self-care (01) ==
LOC: LAB 13:35
PROVIDERS: Internal Medicine
DX: R62.7 Adult failure to thrive (principal); Z45.2 Encounter for adjustment and management of vascular access device; E86.0 Dehydration; D46.Z Other myelodysplastic syndromes; K85.80 Other acute pancreatitis without necrosis or infection; R74.0 Nonspecific elevation of levels of transaminase and lactic acid dehydrogenase [LDH]
CPT/HCPCS: 80053; 83735; 84100; 84478; 85027

== ENCOUNTER 2019-01-12 11:36 | Outpatient (CLI) | payer OTHER ==
[2019-01-12 12:17] LABS: PLATELET COUNT 211 K/uL (142-355)
[2019-01-12 12:24] LABS: POTASSIUM 3.5 mmol/L (3.6-5.2)
== END 2019-01-12 20:18 | disposition home or self-care (01) ==
LOC: LAB 11:36
PROVIDERS: Internal Medicine
DX: R62.7 Adult failure to thrive (principal); Z45.2 Encounter for adjustment and management of vascular access device; E86.0 Dehydration; D46.Z Other myelodysplastic syndromes; K85.80 Other acute pancreatitis without necrosis or infection; R74.0 Nonspecific elevation of levels of transaminase and lactic acid dehydrogenase [LDH]
CPT/HCPCS: 80053; 83735; 84100; 84478; 85027

== ENCOUNTER 2019-01-19 12:10 | Outpatient (CLI) | payer OTHER ==
[2019-01-19 12:32] LABS: PLATELET COUNT 176 K/uL (142-355)
[2019-01-19 12:44] LABS: POTASSIUM 3.8 mmol/L (3.6-5.2)
== END 2019-01-19 23:18 | disposition home or self-care (01) ==
LOC: LAB 12:10
PROVIDERS: Internal Medicine
DX: R62.7 Adult failure to thrive (principal); Z45.2 Encounter for adjustment and management of vascular access device; E86.0 Dehydration; D46.Z Other myelodysplastic syndromes; K85.80 Other acute pancreatitis without necrosis or infection; R74.0 Nonspecific elevation of levels of transaminase and lactic acid dehydrogenase [LDH]
CPT/HCPCS: 80053; 83735; 84100; 84478; 85027

== ENCOUNTER 2019-01-26 11:58 | Outpatient (CLI) | payer OTHER ==
[2019-01-26 13:10] LABS: POTASSIUM 3.1 mmol/L (3.6-5.2)
[2019-01-26 13:19] LABS: PLATELET COUNT 158 K/uL (142-355)
== END 2019-01-26 19:45 | disposition home or self-care (01) ==
LOC: LAB 11:58
PROVIDERS: Internal Medicine
DX: E86.0 Dehydration (principal); D46.Z Other myelodysplastic syndromes; K85.80 Other acute pancreatitis without necrosis or infection; R74.0 Nonspecific elevation of levels of transaminase and lactic acid dehydrogenase [LDH]
CPT/HCPCS: 80053; 83735; 84100; 84478; 85027

== ENCOUNTER 2019-02-02 11:49 | Outpatient (CLI) | payer OTHER ==
[2019-02-02 13:45] LABS: PLATELET COUNT 177 K/uL (142-355)
[2019-02-02 14:21] LABS: POTASSIUM 3.3 mmol/L (3.6-5.2)
== END 2019-02-02 23:38 | disposition home or self-care (01) ==
LOC: LAB 11:49
PROVIDERS: Internal Medicine
DX: R62.7 Adult failure to thrive (principal); E86.0 Dehydration; D46.Z Other myelodysplastic syndromes; K85.80 Other acute pancreatitis without necrosis or infection; R74.0 Nonspecific elevation of levels of transaminase and lactic acid dehydrogenase [LDH]
CPT/HCPCS: 80053; 83735; 84100; 84478; 85027

== ENCOUNTER 2019-02-09 12:16 | Outpatient (CLI) | payer OTHER ==
[2019-02-09 13:19] LABS: PLATELET COUNT 140 K/uL (142-355)
[2019-02-09 13:20] LABS: POTASSIUM 3.3 mmol/L (3.6-5.2)
== END 2019-02-09 20:13 | disposition home or self-care (01) ==
LOC: LAB 12:16
PROVIDERS: Internal Medicine
DX: E86.0 Dehydration (principal); D46.Z Other myelodysplastic syndromes; K85.80 Other acute pancreatitis without necrosis or infection; R74.0 Nonspecific elevation of levels of transaminase and lactic acid dehydrogenase [LDH]
CPT/HCPCS: 80053; 83735; 84100; 84478; 85027

== ENCOUNTER 2019-02-16 13:33 | Outpatient (CLI) | payer OTHER ==
[2019-02-16 13:51] LABS: PLATELET COUNT 134 K/uL (142-355)
[2019-02-16 14:08] LABS: POTASSIUM 3.7 mmol/L (3.6-5.2)
== END 2019-02-16 19:23 | disposition home or self-care (01) ==
LOC: LAB 13:33
PROVIDERS: Internal Medicine
DX: K95.89 Other complications of other bariatric procedure (principal); R62.7 Adult failure to thrive; E86.0 Dehydration; D46.Z Other myelodysplastic syndromes; K85.80 Other acute pancreatitis without necrosis or infection; R74.0 Nonspecific elevation of levels of transaminase and lactic acid dehydrogenase [LDH]
CPT/HCPCS: 80053; 83735; 84100; 84478; 85027

== ENCOUNTER 2019-02-23 11:13 | Outpatient (CLI) | payer OTHER ==
[2019-02-23 11:30] LABS: POTASSIUM 3.1 mmol/L (3.6-5.2)
[2019-02-23 11:33] LABS: PLATELET COUNT 153 K/uL (142-355)
== END 2019-02-23 19:01 | disposition home or self-care (01) ==
LOC: LAB 11:13
PROVIDERS: Internal Medicine
DX: R62.7 Adult failure to thrive (principal); K95.89 Other complications of other bariatric procedure; R74.0 Nonspecific elevation of levels of transaminase and lactic acid dehydrogenase [LDH]; D46.Z Other myelodysplastic syndromes; E86.0 Dehydration; K85.80 Other acute pancreatitis without necrosis or infection
CPT/HCPCS: 80053; 83735; 84100; 84478; 85027